=== PATIENT | male | born 1930 | race Caucasian/White ===

== ENCOUNTER 2016-10-26 05:40 | Inpatient (IN) | payer OTHER ==
[2016-10-21 12:04] LABS: % IMMATURE GRANULYOCYTES 0.3 % (0.0-1.1); ABSOLUTE IMMATURE GRANULOCYTES 0.02 10^3/uL (0.00-0.10); ADD DIFF? NO; ADD MORPH? NO; ADD SCAN? NO; ATYPICAL LYMPHOCYTE FLAG 10 (0-99); FRAGMENT RBC FLAG 0 (0-99); HEMATOCRIT 48.8 % (40.0-51.0); HEMOGLOBIN 16.6 g/dL (13.7-17.5); LEFT SHIFT FLG 0 (0-99); LIPEMIA HEMOLYSIS FLAG 90 (0-99); MEAN CELL HEMOGLOBIN 30.9 pg (27.9-34.1); MEAN CELL VOLUME 90.7 fL (81.5-99.8); MEAN PLATELET VOLUME 10.8 fL (8.7-11.7); PLATELET CLUMPS FLAG 0 (0-99); PLATELET COUNT 198 10^3/uL (150-400); RED BLOOD CELL COUNT 5.38 10^6/uL (4.40-6.38); RED CELL DISTRIBUTION WIDTH 14.5 % (11.5-15.2)
[2016-10-21 12:36] LABS: ANION GAP 11 mEq/L (8-16); CALCIUM 9.4 mg/dL (8.5-10.4); CARBON DIOXIDE 29 mEq/l (22-31); CHLORIDE 101 mEq/L (97-110); CREATININE 1.1 mg/dL (0.7-1.3); GLOMERULAR FILTRATION RATE > 60; GLUCOSE 87 mg/dL (70-100); POTASSIUM 3.9 mEq/L (3.5-5.2); SODIUM 141 mEq/L (134-144)
--- NOTE | 2016-10-22 09:02 | CPEKG ---
Heart Rate: 62 RR Interval: 968 P-R Interval: 180 QRSD Interval: 98 QT Interval: 444 QTC Interval: 451 P [place]: 60 QRS [place]: 34 T Wave [place]: 15 EKG Severity - NORMAL ECG - EKG Impression: SINUS RHYTHM Electronically Signed By: Arnold Tavares 22-Oct-2016 09:50:11
[2016-10-26] MEDS ORDERED: ceFAZolin 2 GM/DEXTROSE 100 ML IV ONE (05:59)
[2016-10-26] MEDS ORDERED: LR 1,000 ML IV ONE (06:04)
[2016-10-26] MEDS ORDERED: LIDOCAINE 1% 2 ML INJ ID PRN (06:04)
--- NOTE | 2016-10-26 06:51 | PDHPUP ---
History & Physical Update H&P update statement: This history and physical update is based on an assessment of the patient which was completed after admission or registration (within 24 hours), but prior to the surgery/procedure. H&P update: H&P reviewed & patient examined, no change in patient's condition since H&P completed
[2016-10-26] MEDS ORDERED: THROMBIN (BOVINE) 5,000 UNIT VIAL TP ONE (06:59)
[2016-10-26] MEDS ORDERED: CHLORHEXIDINE GLUC HIBICLENS 118 ML BTL TP ONE (06:59)
[2016-10-26] MEDS ORDERED: BACITRACIN 50,000 UNITS/10 ML SYR IRR ONE (07:00)
--- NOTE | 2016-10-26 07:13 | PDANEPAE ---
ANE History of Present Illness TLIF L4-S1 ANE Past Medical History - Cardiovascular History Hx Hypertension: Yes Hx Arrhythmias: No Hx Chest Pain: No Hx Coronary Artery / Peripheral Vascular Disease: No Hx CHF / Valvular Disease: No Hx Palpitations: No Cardiovascular History Comment: SL MURMUR FOR YEARS. PATIENT REPORTS USUAL BP IS AROUND 120/60 - Pulmonary History Hx COPD: No Hx Asthma/Reactive Airway Disease: No Hx Recent Upper Respiratory Infection: No Hx Oxygen in Use at Home: No Hx Sleep Apnea: No Sleep Apnea Screening Result - Last Documented: Negative Pulmonary History Comment: LEFT DIAPHRAGM -NERVE DAMAGE & DOES NOT EXPAND FULLY - Neurologic History Hx Cerebrovascular Accident: No Hx Seizures: No Hx Dementia: No - Endocrine History Hx Diabetes: No Hypothyroid: No Hyperthyroid: No - Renal History Hx Renal Disorders: Yes Renal History Comment: BLADDER CA - CYSTOSCOPY FOR TUMOR - Liver History Hx Hepatic Disorders: No - Neurological & Psychiatric Hx Hx Neurological and Psychiatric Disorders: No - Cancer History Hx Cancer: Yes Cancer History Comment: BLADDER CA - Congenital Disorder History Hx Congenital Disorders: No - GI History GERD: no Hx Gastrointestinal Disorders: No - Other Health History Other Health History: KNEE ECZEMA - Chronic Pain History Chronic Pain: Yes (BACK & L LEG) - Surgical History Prior Surgeries: SYNOVIAL CYST SPINE ANE Review of Systems Review of Systems: - Exercise capacity METS (RN): 3 METS (DUE TO BACK PAIN) ANE Patient History - Allergies Allergies/Adverse Reactions: No Known Allergies Allergy (Unverified 09/28/16 18:59) - Home Medications Home Medications: Allopurinol [Zyloprim] 150 mg PO DAILY 09/28/16 [Last Taken Unknown] Ascorbic Acid [Vitamin C] 1,000 mg PO DAILY 09/28/16 [Last Taken Unknown] Atorvastatin Calcium [Lipitor 20 mg (*)] 20 mg PO DAILY 09/28/16 [Last Taken Unknown] Dutasteride [Avodart 0.5 MG (*)] 0.5 mg PO DAILY 09/28/16 [Last Taken Unknown] Furosemide [Lasix 40 MG (*)] 40 mg PO DAILY 09/28/16 [Last Taken Unknown] Herbals/Supplements -Info Only 1 ea PO DAILY 09/28/16 [Last Taken Unknown] Hydrocodone Bit/Acetaminophen [Hydrocodon-Acetaminophen 5-500] 1 each PO DAILY PRN 09/28/16 [Last Taken Unknown] Metoprolol Succinate 50 mg PO DAILY 09/28/16 [Last Taken Unknown] Multivitamins [Multivitamin (*)] 1 each PO DAILY 09/28/16 [Last Taken Unknown] Dumas-3 Fatty Acids [Fish Oil 1000 mg (*)] 1,000 mg PO DAILY 09/28/16 [Last Taken Unknown] Potassium Chloride [Klor-Con 10] 10 meq PO DAILY 09/28/16 [Last Taken Unknown] Valsartan/Hydrochlorothiazide [Valsartan-Hctz 160-25 mg Tab] 1 each PO DAILY [Last Taken Unknown] - Anes Hx Anes Hx: no prior problems (LAST SURGERY ABOUT 12 YEARS AGO) - Smoking Hx Smoking Status: Former smoker - Alcohol Use Alcohol Use: Occasionally - Family Anes Hx Family Anes Hx: none Family Hx Anesthesia Complications: NEG ANE Labs/Vital Signs - Labs Result Diagrams: 10/21/16 11:44 10/21/16 11:44 - Vital Signs Height: 172.72 cm Weight: 74.843 kg ANE Physical Exam - Airway Neck exam: FROM Mallampati Score: Class 1 Mouth exam: dentures - Pulmonary Pulmonary: clear to auscultation - Cardiovascular Cardiovascular: regular rate and rhythym - ASA Status ASA Status: III ANE Anesthesia Plan Anesthesia Plan: general endotracheal anesthesia
[2016-10-26] MEDS ORDERED: MIDAZOLAM 2 MG/2 ML VIAL IVP ONE (07:21)
[2016-10-26] MEDS ORDERED: MIDAZOLAM 2 MG/2 ML VIAL ONE (07:23)
[2016-10-26] MEDS ORDERED: KETAMINE 100 MG/10 ML SYR ONE (07:25)
[2016-10-26] MEDS ORDERED: PROPOFOL/EMULSION 500 MG/50 ML BOTTLE IV ONE ×2 (07:25→09:48)
[2016-10-26] MEDS ORDERED: fentaNYL 100 MCG/2 ML INJ ONE ×4 (07:25→13:05)
[2016-10-26] MEDS ORDERED: DEXAMETHASONE 4 MG/ML VIAL ONE (07:28)
[2016-10-26] MEDS ORDERED: ROCURONIUM 50 MG/5 ML VIAL ONE (07:28)
[2016-10-26] MEDS ORDERED: BUPIVACAINE 0.25% 30 ML SDV ONE (07:36)
[2016-10-26] MEDS ORDERED: HYDROmorphONE/DILAUDID 6 MG/30 ML PCA IV PRN (07:45)
[2016-10-26] MEDS ORDERED: MAGNESIUM HYDROXIDE 30 ML UDCUP PO PRN (07:45)
[2016-10-26] MEDS ORDERED: HYDROCODONE/APAP 5/325 TAB PO PRN (07:45)
[2016-10-26] MEDS ORDERED: LACTULOSE 20 GM/30 ML UDCUP PO PRN (07:45)
[2016-10-26] MEDS ORDERED: diphenhydrAMINE 25 MG CAP PO PRN ×2 (07:45)
[2016-10-26] MEDS ORDERED: ZOLPIDEM TARTRATE 5 MG TAB PO PRN (07:45)
[2016-10-26] MEDS ORDERED: NALOXONE HCL 0.4 MG/ML INJ IVP PRN (07:45)
[2016-10-26] MEDS ORDERED: ONDANSETRON 4 MG/2 ML VIAL IVP PRN ×2 (07:45)
[2016-10-26] MEDS ORDERED: ONDANSETRON DISINTEGRATING 4 MG TAB PO PRN (07:45)
[2016-10-26] MEDS ORDERED: NS 1,000 ML IV SCH (07:45)
[2016-10-26] MEDS ORDERED: BISACODYL 10 MG SUPP PR PRN (07:45)
[2016-10-26] MEDS ORDERED: PHENYLEPHRINE 10 MG/ML SDV ONE (07:55)
[2016-10-26] MEDS ORDERED: epHEDrine SULFATE 10 MG/ML SYR ONE (10:37)
[2016-10-26] MEDS ORDERED: ONDANSETRON 4 MG/2 ML VIAL ONE (11:52)
[2016-10-26] MEDS ORDERED: HYDROmorphONE/DILAUDID 1 MG/ML INJ IVP PRN (12:29)
--- NOTE | 2016-10-26 12:54 | SOAPPROG ---
SOAP Progress Note Assessment/Plan: Post Op Visit S: Awake and alert. NAD. Pt with expected lower back pain O: AFVSS/PERRLA/EOMI no droop CN 2-12 grossly intact +lt touch 5/5 BUE/BLE = CDI MARY in place A/P: 85 yo male that is s/p TLIF L4/5 and L5/S1 -orders in place -call with any questions or concerns -pt seen by Dr Choi as well -admit to med surg 10/26/16 12:49 Objective: Vital Signs Temp Pulse Resp BP Pulse Ox 36.6 C 70 16 157/96 H 91 L 10/26/16 12:24 10/26/16 07:02 10/26/16 07:02 10/26/16 07:02 10/26/16 07:02 Laboratory Results 10/21/16 11:44 10/21/16 11:44 10/25/16 10/26/16 10/27/16 05:59 05:59 05:59 Output Total 250 Balance -250 ICD10 Worksheet Patient Problems: Problems Problem Status Onset Arthrodesis status Acute Lumbar radicular pain Acute Lumbar stenosis Acute - ICD10 Problem Qualifiers (1) Lumbar stenosis (2) Lumbar radicular pain (3) Arthrodesis status
[2016-10-26] MEDS: fentaNYL 100 MCG/2 ML INJ IVP PRN ×2 (13:08→13:43)
--- NOTE | 2016-10-26 13:38 | POSTANESTH ---
Post Anesthetic Evaluation Cardiovascular Status: Normal, Stable Respiratory Status: Normal, Stable Level of Consciousness/Mental Status: Mildly Sleepy, Arousable Pain Control: Adequate, Prn Tx Ordered Nausea/Vomiting Control: Adequate, Prn Tx Ordered Complications Possibly Related to Anesthesia: None Noted
[2016-10-26] MEDS ORDERED: HYDROmorphONE/DILAUDID 1 MG/ML INJ ONE (14:01)
[2016-10-26] MEDS: METOPROLOL SUCCINATE XR 50 MG TAB PO SCH ×2 (14:22→14:23)
[2016-10-26] MEDS: FUROSEMIDE 40 MG TAB PO SCH (14:22)
[2016-10-26] MEDS: ATORVASTATIN CALCIUM 20 MG TAB PO SCH (14:22)
[2016-10-26] MEDS: ALLOPURINOL 300 MG TAB PO SCH (14:22)
[2016-10-26] MEDS: SENNOSIDES/DOCUSATE SODIUM TAB PO SCH ×2 (14:23→21:34)
[2016-10-26] MEDS: DUTASTERIDE 0.5 MG CAP PO SCH (14:23)
[2016-10-26] MEDS: POTASSIUM CL 10 MEQ TAB PO SCH (14:23)
[2016-10-26] MEDS: FAMOTIDINE 20 MG TAB PO SCH ×2 (14:23→21:34)
[2016-10-26] MEDS: VALSARTAN/HCTZ 80-12.5MG TAB PO SCH (14:24)
[2016-10-26] MEDS: ceFAZolin 2 GM/DEXTROSE 100 ML IV SCH ×2 (15:34→21:34)
[2016-10-26] MEDS: POLYETHYLENE GLYCOL 3350 17 GM PKT PO PRN (15:35)
[2016-10-26] MEDS: METHOCARBAMOL 750 MG TAB PO PRN ×2 (15:37→18:12)
[2016-10-26] MEDS: ACETAMINOPHEN 500 MG TAB PO SCH ×2 (15:38→21:33)
[2016-10-26] MEDS: oxyCODONE IR 5 MG TAB PO PRN ×2 (17:02→21:33)
[2016-10-27] MEDS: METHOCARBAMOL 750 MG TAB PO PRN ×2 (00:13→21:15)
[2016-10-27] MEDS: ACETAMINOPHEN 500 MG TAB PO SCH ×3 (04:52→21:13)
[2016-10-27] MEDS: oxyCODONE IR 5 MG TAB PO PRN ×2 (04:53→21:15)
[2016-10-27] MEDS ORDERED: FLU VACC QS 2017-18 (3YR+)/PF 0.5 ML SYR (FLUARIX QUAD) IM ONE (04:59)
[2016-10-27 05:42] LABS: % IMMATURE GRANULYOCYTES 0.6 % (0.0-1.1); ABSOLUTE IMMATURE GRANULOCYTES 0.08 10^3/uL (0.00-0.10); ADD DIFF? NO; ADD MORPH? NO; ADD SCAN? NO; ATYPICAL LYMPHOCYTE FLAG 0 (0-99); FRAGMENT RBC FLAG 10 (0-99); HEMATOCRIT 40.8 % (40.0-51.0); HEMOGLOBIN 13.9 g/dL (13.7-17.5); LEFT SHIFT FLG 0 (0-99); LIPEMIA HEMOLYSIS FLAG 90 (0-99); MEAN CELL HEMOGLOBIN CONCENTR. 34.1 g/dL (32.4-36.7); MEAN CELL VOLUME 90.9 fL (81.5-99.8); MEAN PLATELET VOLUME 10.6 fL (8.7-11.7); PLATELET CLUMPS FLAG 10 (0-99); PLATELET COUNT 207 10^3/uL (150-400); RED BLOOD CELL COUNT 4.49 10^6/uL (4.40-6.38); RED CELL DISTRIBUTION WIDTH 14.3 % (11.5-15.2)
[2016-10-27 05:59] LABS: ANION GAP 9 mEq/L (8-16); CALCIUM 8.7 mg/dL (8.5-10.4); CARBON DIOXIDE 27 mEq/l (22-31); CHLORIDE 97 mEq/L (97-110); CREATININE 1.5 mg/dL (0.7-1.3); GLOMERULAR FILTRATION RATE 45; GLUCOSE 110 mg/dL (70-100); POTASSIUM 3.9 mEq/L (3.5-5.2); SODIUM 133 mEq/L (134-144)
[2016-10-27] MEDS ORDERED: DIAZEPAM 5 MG TAB PO PRN (08:05)
--- NOTE | 2016-10-27 08:09 | NEUSURGPN ---
Date of Surgery: 10/26/16 Post Op Day: 1 Assessment/Plan: Assessment: 85 yo male that is s/p TLIF L4/5 and L5/S1 POD #1 Plan: -s/p TLIF L4-S1-pt with expected lower back pain, legs feel good -brace when out of bed -continue with MARY today -PT/OT pending today -post op xrays pending -IV->PO meds -added valium -orders in place -call with any questions or concerns -pt seen by Dr Choi as well -plan for dc tomorrow or Monday depending on how Mr Garland does today 10/26/16 12:49 Subjective: Awake and alert. NAD. Eating/drinking and voiding. No f/c/n/v/d. Objective: AFVSS/PERRLA/EOMI no droop CN 2-12 grossly intact +lt touch 5/5 BUE/BLE = CDI MARY in place Neuro Check Frequency: per routine Urinary Catheter in Place: No - Physician Discussed Patient with : Jimbo Patient Seen by : Jimbo Neurosurgery Physical Exam - Vitals, I&O, Labs I and O 10/26/16 10/27/16 10/28/16 05:59 05:59 05:59 Intake Total 1660 Output Total 2195 Balance -535 Weight 75.75 kg Intake: Oral (ml) 300 IV Intake (ml) 1200 IV Infused (ml) 160 Ns 1,000 ml @ 100 mls/hr 60 IV CONT DINAH Rx#: [id number] ceFAZolin 2 GM/DEXTROSE 100 100 ml @ 200 mls/hr IV Q8HRS DINAH Rx#:[id number] Output: Urine (ml) 1545 Catheter 1545 Estimated Blood Loss (ml) 250 MARY Drain Output (ml) 400 Left Back Antony Rosario 400 Other: Intake Quantity Yes Sufficient Number of Voids Catheter 1 Vital Signs Temp Pulse Resp BP Pulse Ox 36.6 C 67 16 105/67 92 10/27/16 07:39 10/27/16 07:39 10/27/16 07:39 10/27/16 07:39 10/27/16 07:39 Laboratory Results 10/27/16 05:23 10/27/16 05:23 ICD10 Worksheet Patient Problems: Problems Problem Status Onset Arthrodesis status Acute Lumbar radicular pain Acute Lumbar stenosis Acute - ICD10 Problem Qualifiers (1) Lumbar stenosis (2) Lumbar radicular pain (3) Arthrodesis status
[2016-10-27] MEDS: VALSARTAN/HCTZ 80-12.5MG TAB PO SCH (10:35)
[2016-10-27] MEDS: ALLOPURINOL 300 MG TAB PO SCH (10:36)
[2016-10-27] MEDS: POTASSIUM CL 10 MEQ TAB PO SCH (10:36)
[2016-10-27] MEDS: METOPROLOL SUCCINATE XR 50 MG TAB PO SCH (10:36)
[2016-10-27] MEDS: SENNOSIDES/DOCUSATE SODIUM TAB PO SCH ×2 (10:36→21:15)
[2016-10-27] MEDS: ATORVASTATIN CALCIUM 20 MG TAB PO SCH (10:37)
[2016-10-27] MEDS: DUTASTERIDE 0.5 MG CAP PO SCH (10:37)
[2016-10-27] MEDS: FAMOTIDINE 20 MG TAB PO SCH ×2 (10:37→21:15)
[2016-10-27] MEDS: FUROSEMIDE 40 MG TAB PO SCH (10:37)
--- NOTE | 2016-10-27 15:38 | ASMTCMCOM ---
CM Note CM Note Notes: Pt admitted for TLIF. PT/OT recommending HC. Spoke with pt and , [facility] and agency choice. Pt's asked that I call their outpt PT and ask for a referral. LM with Dayan[facility] Prado. Told pt that if C/M does not hear back then they will be asked for a different choice. C/M to follow. Date Signed: 10/27/2016 03:37 PM Electronically Signed By:Kasia Childers LCSW
--- NOTE | 2016-10-27 17:26 | GOP ---
[f rep st] OPERATIVE REPORT DATE OF OPERATION: 10/26/2016 SURGEON: Azalea Choi MD SQUEEGEE OPERATOR: Andre Ellison PA-C. PREOPERATIVE DIAGNOSIS: Lumbar spondylolisthesis L4-5; prior lumbar laminectomy at L4-5 for synovial cyst, 13 years ago; lumbosacral radiculopathy, left; lumbar degenerative disk disease, L4-5, L5-S1; left L5-S1 foraminal disk herniation compressing the left L5 nerve root; lumbar spondylosis; lumbar stenosis. POSTOPERATIVE DIAGNOSIS: Lumbar spondylolisthesis L4-5; prior lumbar laminectomy at L4-5 for synovial cyst, 13 years ago; lumbosacral radiculopathy, left; lumbar degenerative disk disease, L4-5, L5-S1; left L5-S1 foraminal disk herniation compressing the left L5 nerve root; lumbar spondylosis; lumbar stenosis. PROCEDURE PERFORMED: Posterior lateral and intervertebral arthrodesis with decompression at L4-5, L5-S1 (13343, 81408); placement of biomechanical intervertebral device L4-5, L5-S1 (01589 x2), microscope; posterior segmental instrumentation L4-5, S1 (32644); same incision bone graft harvest; spinal stereotaxy, microscope. FINDINGS: ESTIMATED BLOOD LOSS: 200 cc. INDICATIONS: The patient underwent a successful lumbar laminectomy for synovial cyst resection back in 2003, but he presented to my office with increasingly severe terrible left leg pain, and progressive spondylolisthesis of L4-5, and compression of the left L4 nerve root in the neural foramen, the left L5 nerve root in the neural foramen, the left L5 root in the L4-5 spinal canal, and I suggested spinal stabilization, decompression, and fusion. The risk of ongoing symptoms, nerve damage, spinal fluid leak, screw and hardware malposition, malfunction, pseudoarthrosis, and need for revision surgery, as well the risk of continued terrible pain, as well as ongoing chronic axial low back pain were discussed. He knew that surgery may or may not help him and he wanted to proceed. DESCRIPTION OF PROCEDURE: The patient was taken to the operating room, placed in supine position. General anesthesia was begun. He was flipped prone onto the Antony table. Care was taken to pad all points of contact. His back was sterilely prepped and draped in the usual fashion. The prior incision was marked. We made a midline incision beginning at the old incision and extending rostrally for about 3 cm and caudally for about 3 cm, for a total distance of about 8 cm. The subcutaneous tissue was dissected using Bovie cautery down through the fascia, and a subperiosteal dissection was made down the L4-5, L5- S1 lamina. The laminotomy defect, however, was appreciated. We did not violate the dura. Localizing xrays were taken. We then denuded the bilateral L4-5, L5- S1 facet joint to create arthrodesis and decorticated the transverse process of L4-5, S1. A Stealth neuronavigational spin was made with the O-arm. Using frameless Stealth stereotaxy, we placed pedicle screws bilaterally at L4-5, and S1. We put bicortical screws at S1. They all stimulated at acceptable levels. We performed an O-arm spin and all the screws were in excellent position. We took a 55 mm sherman and put it on the left and distracted between L4-5 and S1 and then put a 60 mm sherman on the right and distracted slightly on the right. We then went back to the left and decided because of the patient's anatomy to use a 60 mm sherman. We discarded the 55 mm sherman, and put a 60 mm sherman now on the left and distracted on the left somewhat further then we had before. We then removed all the soft tissue of the bone at L4-5 and the sacrum. We then harvested the L5 spinous process and the inferior L4 spinous process for autologous grafting purposes. Introduced the operating microscope and drilled left-sided complete laminectomy of L5. We opened the ligamentum flavum and decompressed the left lateral portion of the spinal canal and performed a complete left L5-S1 facetectomy and decompressed the exiting L5 nerve root. We swept under the nerve root and indeed 1 could appreciate that sub annular disk herniation coming out of the L5-S1 disk compressing the L5 root. We then continued working our way up rostrally along the L5 root, the S1 root, by the way, was also identified, and worked adjacent to the L5 pedicle. This is where we encountered the scar tissue from the prior laminectomy. We then the scar tissue from the pedicle of L5 and worked our way around the rostral lip of L5 into the L4-5 neural foramen. We then decompressed the exiting L4 nerve root in the neural foramen and removed all the tissue in the neural foramen. There was very severe stenosis, some of it had been alleviated by the fact that we had distracted at this level significantly. We then incised the L4-5 disk. We removed the disk and the cartilaginous endplates. We roughened subchondral bone to create arthrodesis at that level. We then turned our attention to the L5-S1 level where we incised the L5-S1 disk , and then removed the disk and the cartilaginous endplates completely. We roughened the subchondral bone at L5-S1 to create arthrodesis there. Now that both disks had been removed at L4-5, L5-S1, we turned our attention to decompressing the exiting L5 nerve root, and we took a down-biting Kerrison and protected the root and fractured the L5-S1 disk down in the disk space and worked our way out laterally. We were eventually able to reduce the subannular fragment at L5-S1 into the disk space and this was removed. The exiting L5 root was nicely decompressed. The L4 nerve root had been completely decompressed. We sized and chose an 8 mm device for L5-S1. We chose a 7 mm device for L4-5, they were both 28 mm in length. We inserted each to the device separately under fluoroscopic guidance. They had been packed with 1 mg of BMP both in the device and then the disk space itself. We had placed bony autograft into the disk space as well. The devices were inserted and expanded under fluoroscopic guidance. We were happy with their positioning. We then decorticated all the remaining posterolateral bone bilaterally at L4-5, L5-S1, to create arthrodesis , and laid the remaining 2.0 mg of bone morphogenic protein posterolaterally bilaterally, 1 mg on each side. Bony autograft was placed on top of this, followed by a drain. We did relax our distraction between L4-5, L5-S1, and compressed to create greater lordosis right at the end of the case. All the screws were locked according to company specification. Subfascial drain was placed. We then closed the incision in multiple layers using Vicryl sutures. A running PDS was placed in the skin itself. Steri-Strips were applied. The patient was reversed from anesthesia, extubated, and transferred to recovery room in stable condition. There were no complications. COMPLICATIONS: None. INSTRUMENTATION USED: Medtronic 5.5 mm Solera with elevate intervertebral devices and we used 4.0 mg of bone morphogenic protein. /[id number]/MODL MTDD
[2016-10-28] MEDS: oxyCODONE IR 5 MG TAB PO PRN (04:52)
[2016-10-28] MEDS: METHOCARBAMOL 750 MG TAB PO PRN (04:52)
[2016-10-28] MEDS: ACETAMINOPHEN 500 MG TAB PO SCH (05:53)
--- NOTE | 2016-10-28 08:51 | NEUSURGPN ---
Date of Surgery: 10/26/16 Post Op Day: 2 Assessment/Plan: Assessment: 85 yo male that is s/p TLIF L4/5 and L5/S1 POD #2 Plan: -s/p TLIF L4-S1-pt with expected lower back pain -Brace when out of bed -Discontinue MARY -Encourage IS q1hour wile awake -Patient may discharge home pending PT/OT recommendations -PT/OT -Post op xrays stable -call with any questions or concerns -Patient was seen by Dr Choi as well Subjective: Patient has expected back pain and left leg pain at times which is improved since before surgery Objective: PERRLA EOMI BLE 5/5 Sensation intact to light touch BLE MARY in place Dressing CDI Neuro Check Frequency: per routine Urinary Catheter in Place: No - Physician Discussed Patient with Dr.: Jimbo Patient Seen by : Jimbo Neurosurgery Physical Exam - Vitals, I&O, Labs I and O 10/27/16 10/28/16 10/29/16 05:59 05:59 05:59 Intake Total 1660 550 Output Total 2195 245 Balance -535 305 Weight 75.75 kg Intake: Oral (ml) 300 550 IV Intake (ml) 1200 IV Infused (ml) 160 Ns 1,000 ml @ 100 mls/hr 60 IV CONT DINAH Rx#: [id number] ceFAZolin 2 GM/DEXTROSE 100 100 ml @ 200 mls/hr IV Q8HRS DINAH Rx#:[id number] Output: Urine (ml) 1545 Catheter 1545 Estimated Blood Loss (ml) 250 MARY Drain Output (ml) 400 245 Left Back Antony Rosario 400 245 Other: Intake Quantity Yes Yes Sufficient Number of Voids Catheter 1 2 Vital Signs Temp Pulse Resp BP Pulse Ox 36.6 C 74 16 98/64 L 2 L 10/28/16 07:43 10/28/16 07:43 10/28/16 07:43 10/28/16 07:43 10/28/16 07:43 Laboratory Results 10/27/16 05:23 10/27/16 05:23 ICD10 Worksheet Patient Problems: Problems Problem Status Onset Arthrodesis status Acute Lumbar radicular pain Acute Lumbar stenosis Acute
[2016-10-28] MEDS: FAMOTIDINE 20 MG TAB PO SCH (09:03)
[2016-10-28] MEDS: DUTASTERIDE 0.5 MG CAP PO SCH (09:06)
[2016-10-28] MEDS: METOPROLOL SUCCINATE XR 50 MG TAB PO SCH (09:06)
[2016-10-28] MEDS: SENNOSIDES/DOCUSATE SODIUM TAB PO SCH (09:07)
[2016-10-28] MEDS: FUROSEMIDE 40 MG TAB PO SCH (09:07)
[2016-10-28] MEDS: ATORVASTATIN CALCIUM 20 MG TAB PO SCH (09:08)
[2016-10-28] MEDS: ALLOPURINOL 300 MG TAB PO SCH (09:08)
[2016-10-28] MEDS: POTASSIUM CL 10 MEQ TAB PO SCH (09:08)
[2016-10-28] MEDS: POLYETHYLENE GLYCOL 3350 17 GM PKT PO PRN (09:09)
[2016-10-28] MEDS: VALSARTAN/HCTZ 80-12.5MG TAB PO SCH (09:09)
--- NOTE | 2016-10-28 09:51 | PDIAF ---
- Diagnosis Diagnosis: S/P L4-5, L5-S1 TLIF 10/26/16 Code Status: Full Code - Medication Management Discharge Medications: Medications to Continue on Transfer Allopurinol [Zyloprim] 150 mg PO DAILY 09/28/16 [Last Taken 10/26/16 04:30] Ascorbic Acid [Vitamin C] 1,000 mg PO DAILY 09/28/16 [Last Taken 10/19/16] Atorvastatin Calcium [Lipitor 20 mg (*)] 20 mg PO DAILY 09/28/16 [Last Taken 04:30] Dutasteride [Avodart 0.5 MG (*)] 0.5 mg PO DAILY 09/28/16 [Last Taken 10/26/16 04:30] Furosemide [Lasix 40 MG (*)] 40 mg PO DAILY 09/28/16 [Last Taken Unknown] Herbals/Supplements -Info Only 1 ea PO DAILY 09/28/16 [Last Taken 10/19/16] Metoprolol Succinate 50 mg PO DAILY 09/28/16 [Last Taken 10/26/16 04:30] Multivitamins [Multivitamin (*)] 1 each PO DAILY 09/28/16 [Last Taken 10/19/16] Bonneau-3 Fatty Acids [Fish Oil 1000 mg (*)] 1,000 mg PO DAILY 09/28/16 [Last Taken 10/19/16] Potassium Chloride [Klor-Con 10] 10 meq PO DAILY 09/28/16 [Last Taken 10/26/16 04:30] Valsartan/Hydrochlorothiazide [Valsartan-Hctz 160-25 mg Tab] 1 each PO DAILY [Last Taken 10/26/16 04:30] Acetaminophen [Tylenol ES 500 mg (*)] 1,000 mg PO Q8HRS tab 10/28/16 [Last Taken Unknown] Methocarbamol [Robaxin 750 mg (*)] 750 mg PO QID PRN #0 tab 10/28/16 [Last Taken Unknown] Sennosides/Docusate Sodium [Senokot-S] 1 - 2 tab PO BID tab 10/28/16 [Last Taken Unknown] oxyCODONE IR [Oxycodone Ir (*)] 10 mg PO Q4HRS PRN #0 tab 10/28/16 [Last Taken Unknown] Discharge Medications: Refer to the Discharge Home Medication list for PRN reason. PICC Care - Routine: N/A - Orders Services needed: Home Care, Registered Nurse, Certified Pre Assembly Wirer, Physical Therapy, Occupational Therapy Home Care Face to Face: I certify that this patient was under my care and that I had the required [id number]-xu-[id number] encounter meeting the encounter requirements on the discharge day. My findings support the fact that the patient is homebound as defined in Home Care Face to Face Continued: CMS Chapter 7 Medicare Benefits Manual 30.1.1 , The condition of the patient is such that there exists a normal inability to leave home and consequently, leaving home would require a considerable and taxing effort. Diet Recommendation: no restrictions on diet Diet Texture: Regular Texture Diet Wound Care Instructions: May remove dressing 10/29/16, leave steri strips in place. May shower 10/29/16, limit shower to 5 minutes for first 2 weeks, do not scrub incisional area Activity/Weight Bearing Restrictions: No bending or twisting. No lifting greater than 10 pounds Equipment: Wear brace when out of bed - Follow Up Care Current Providers and Referrals: LORI QUIROZ [Other] Lesly Choi MD [Medical Doctor] - follow up in 2 weeks
--- NOTE | 2016-10-28 09:53 | PDHOMEO2F ---
Home Oxygen Face to Face Home Orders: I certify that a physician or a nurse practitioner or physician's staffing assistant has had a hqru-tj-bdor encounter with this patient on the date of this order due to the diagnosis listed, which relates to the primary reason the patient requires home oxygen. Alternative treatments have been tried, or considered, and deemed ineffective. It is anticipated that supplemental oxygen will result in improvement with treatment. Home oxygen qualifying diagnosis: hypoxia SpO2 on room air (%): 77% Frequency of home oxygen needed: continuous Home oxygen liters per minute: 2 Home oxygen delivery device: nasal cannula Concentrator: Yes E-tanks for mobility and back up: Yes If ordering portable O2, is the patient mobile in the home?: Yes I certify that, based on these findings, the home oxygen is medically necessary for this patient for the following length of time. Length of time home oxygen needed: 1 week Home Oxygen Comment: follow up with PCP to eval need for home O2 greater than 1 week
[2016-10-28 10:22] VITALS: TEMP 98.3
[2016-10-28 12:30] VITALS: BP 119/68; PULSE 76; RESP 16; O2SAT 93
--- NOTE | 2016-10-28 16:31 | ASMTCMCOM ---
CM Note CM Note Notes: Pt medically stable for d/c w [facility]. Date Signed: 10/28/2016 04:30 PM Electronically Signed By:VIOLET Najera
--- NOTE | 2016-10-28 16:31 | ASDISCHSUM ---
Discharge Information Plan Status: Medically Cleared to Leave: Discharge Date:10/28/2016 01:45 PM D/C Disposition: [facility] D/C Disposition:[id number] Projected Discharge Date:10/28/2016 11:00 AM Transportation at D/C: Discharge Delay Reason: Follow-Up Date:10/28/2016 11:00 AM Discharge Slot: Final Diagnosis: Placement Information Referral Type:*Home Health Care Services Referral ID:[id number] Provider Name:[facility] [place] Address 1:[address] [address] Address 2: City:[place] Selection Factors: State:[place] Patient Contact Information Contact Name:KARO Relationship: Address:[address] Work Phone: City:[place] Alternate Phone: State/Zip Code:[place] [address] Email: Financial Information Financial Class: Primary Plan Desc:MEDICARE INPATIENT Primary Plan Number:[id number] Secondary Plan Desc:[employer] PPO POS HMO SIG ADM Secondary Plan Number:[id number] Assessment Information [facility] CM Progress Note CM Note CM Note Notes: Pt admitted for TLIF. PT/OT recommending HC. Spoke with pt and , [facility] and agency choice. Pt's asked that I call their outpt PT and ask for a referral. LM with Dayan[facility] Prado. Told pt that if C/M does not hear back then they will be asked for a different choice. C/M to follow. Date Signed: 10/27/2016 03:37 PM Electronically Signed By:Kasia Childers LCSW [facility] CM Progress Note CM Note CM Note Notes: Pt medically stable for d/c w [facility] Date Signed: 10/28/2016 04:30 PM Electronically Signed By:VIOLET Najera Intervention Information Intervention Type:*IM-Signed Date of Service:10/28/2016 10:46 AM Patient Type:Inpatient Staff Member:Rafaela Payan Hours: Discipline: Severity: Comment:
[2016-10-29] MEDS ORDERED: ENOXAPARIN 40 MG/0.4 ML SYR SC SCH (09:00)
== END 2016-10-28 13:45 | disposition home health service (06) | DRG 460 ==
LOC: F3N 05:40
PROVIDERS: ADMIT Neurological Surgery; ATTEND Neurological Surgery
PROC: 3E0U0GB Introduction of Recombinant Bone Morphogenetic Protein into Joints, Open Approach (ICD-10-PCS; principal; 2016-10-26 11:00)
PROC: 01NB0ZZ Release Lumbar Nerve, Open Approach (ICD-10-PCS; principal; 2016-10-26 11:00)
PROC: 0ST20ZZ Resection of Lumbar Vertebral Disc, Open Approach (ICD-10-PCS; principal; 2016-10-26 11:00)
PROC: 0ST40ZZ Resection of Lumbosacral Disc, Open Approach (ICD-10-PCS; principal; 2016-10-26 11:00)
PROC: 0SG30AJ Fusion of Lumbosacral Joint with Interbody Fusion Device, Posterior Approach, Anterior Column, Open Approach (ICD-10-PCS; principal; 2016-10-26 11:00)
PROC: 0SG00AJ Fusion of Lumbar Vertebral Joint with Interbody Fusion Device, Posterior Approach, Anterior Column, Open Approach (ICD-10-PCS; principal; 2016-10-26 11:00)
DX: M43.16 Spondylolisthesis, lumbar region (principal); M43.17 Spondylolisthesis, lumbosacral region; M51.16 Intervertebral disc disorders with radiculopathy, lumbar region; M51.17 Intervertebral disc disorders with radiculopathy, lumbosacral region; M48.06 Spinal stenosis, lumbar region
CPT/HCPCS: 97116-GP; 97161-GP; 97165-GO; 97535-GO; C1713; G0008; G8987-GO-CK; G8988-GO-CI; G8989-GO-CI; J0171; J0690; J1100; J1170; J2250; J2370; J2405; J2704; J3010